=== PATIENT | female | born 2000 | race Caucasian/White ===

== ENCOUNTER 2023-12-15 22:21 | Emergency (ER) | payer SELFPAY ==
[~2023-12-15] VITALS: Ht 165.1 cm; Wt 54.0 kg
[2023-12-15 22:27] VITALS: O2SAT 100
[2023-12-15] MEDS: SODIUM CHLORIDE 0.9% 1,000 ML IV ONE (23:14)
[2023-12-15] MEDS: ONDANSETRON HCL 4MG/2ML INJ IV STA (23:21)
[2023-12-15 23:36] LABS: CARBON DIOXIDE 22 mEq/L (21-32); CHLORIDE 109 mEq/L (98-107); SODIUM 137 mEq/L (136-145)
[2023-12-15 23:37] LABS: BASOPHILS % 0.3 % (0.0-2.0); EOSINOPHILS % 0.3 % (0.0-5.0); HEMATOCRIT. 37.1 % (36.0-48.0); HEMOGLOBIN. 12.2 g/dL (12.0-16.0); LYMPHOCYTES % 10.8 % (20.0-50.0); MEAN CORPUSCULAR HEMOGLOBIN 28.2 pg (28.0-32.0); MEAN CORPUSCULAR HGB CONC 32.9 g/dL (31.0-37.0); MEAN PLATELET VOLUME 6.9 fl (7.4-10.4); NEUTROPHILS % 84.6 % (40.0-76.0); PLATELET 334 x1000/uL (130-400); RED BLOOD CELL COUNT 4.31 mill/uL (4.2-5.4); RED CELL DISTRIBUTION WIDTH 13.9 % (11.6-14.6)
[2023-12-15 23:41] LABS: CREATININE 0.7 mg/dL (0.6-1.0)
[2023-12-15 23:42] LABS: ETHANOL BLOOD 196 mg/dL (<10); GLUCOSE 94 mg/dL (70-105); UREA NITROGEN BLOOD 11 mg/dL (9-23)
[2023-12-15 23:46] LABS: HCG SCREEN NEGATIVE
[2023-12-16 00:01] VITALS: BP 101/68; PULSE 116; RESP 16; TEMP 36.66960; O2SAT 100
== END 2023-12-16 00:08 | disposition home or self-care (01) ==
LOC: ER 22:21
DX: T51.0X1A Toxic effect of ethanol, accidental (unintentional), initial encounter (principal); R41.82 Altered mental status, unspecified; R11.10 Vomiting, unspecified; X58.XXXA Exposure to other specified factors, initial encounter
CPT/HCPCS: 80048; 80320; 84703; 85025; 36415; 96361; 96374; 99283; J2405; J7030; G0480